=== PATIENT | female | born 1975 | race Caucasian/White ===

== ENCOUNTER 2018-05-19 14:06 | Emergency (ER) | payer OTHER ==
[2018-05-19] MEDS ORDERED: Aspirin 81 MG Tab.Chew PO ONE (14:13)
[2018-05-19] MEDS ORDERED: Sodium Chloride 0.9% 10 ML Syringe FLUSH PRN (14:15)
[2018-05-19] MEDS ORDERED: Sodium Chloride 0.9% 1,000 ML IV SCH (14:15)
[2018-05-19] MEDS ORDERED: Nitroglycerin 0.4 MG Tab.SL SL ONE (14:18)
--- NOTE | 2018-05-19 14:23 | EDM.PDOC ---
ED HPI GENERAL MEDICAL PROBLEM - General Chief Complaint: Chest Pain Stated Complaint: CHEST PAIN Time Seen by Provider: 05/19/18 14:09 Source of Information: Reports: Patient History Limitations: Reports: No Limitations - History of Present Illness INITIAL COMMENTS - FREE TEXT/NARRATIVE: Chest pain started this am; she states it is a dull, almost muscle pull feeling substernal to the right side. She has a hx of CAD s/p stent to the LAD, 90% occlusion in September; is on Brillinta. She rates her discomfort as a 2/10 after 2 SL Ntg. She is anxious; parents are here with her. 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 is Onset: Today Location: Reports: Chest Quality: Reports: Sharp Severity: Moderate Improves with: Reports: Other (nitroglycerin) Associated Symptoms: Reports: No Other Symptoms Right Middle Chest Pain Score (Numeric/FACES): 3 - Related Data Allergies Allergy/AdvReac Type Severity Reaction Status Date / Time No Known Allergies Allergy Verified 05/19/18 14:34 Home Meds: Home Meds Aspirin 81 mg PO DAILY 05/19/18 [History] Isosorbide Mononitrate [Imdur] 30 mg PO DAILY #30 tab.er 05/19/18 [Rx] Nitroglycerin 0.4 mg SL ASDIRECTED PRN 05/19/18 [History] Nitroglycerin 0.4 mg SL ASDIRECTED PRN #1 bottle 05/19/18 [Rx] Ticagrelor [Brilinta] 90 mg PO BID 05/19/18 [History] atorvaSTATin [Lipitor] 40 mg PO BEDTIME 05/19/18 [History] lamoTRIgine [Lamictal] 50 mg PO DAILY 05/19/18 [History] ED ROS GENERAL - Review of Systems Review Of Systems: See Below Constitutional: Reports: No Symptoms Respiratory: Reports: No Symptoms Cardiovascular: Reports: Chest Pain GI/Abdominal: Reports: No Symptoms : Reports: No Symptoms Musculoskeletal: Reports: Other (chest wall shooting pains (last 30 seconds)) Skin: Reports: No Symptoms Neurological: Reports: No Symptoms Psychiatric: Reports: No Symptoms ED EXAM, GENERAL - Physical Exam Exam: See Below Exam Limited By: No Limitations General Appearance: Alert, WD/WN, No Apparent Distress Ears: Normal External Exam Throat/Mouth: Normal Inspection, Normal Oropharynx Head: Atraumatic, Normocephalic Neck: Normal Inspection, Supple, Non-Tender, Full Range of Motion, Other (no carotid bruit) Respiratory/Chest: No Respiratory Distress, Lungs Clear, Normal Breath Sounds Cardiovascular: Regular Rate, Rhythm GI/Abdominal: Normal Bowel Sounds, Soft, Non-Tender Extremities: Normal Inspection, Normal Range of Motion, Non-Tender, No Pedal Edema, Normal Capillary Refill Neurological: Alert, Oriented, CN II-XII Intact Psychiatric: Normal Affect, Normal Mood Skin Exam: Warm, Dry, Intact, Normal Color, No Rash EKG INTERPRETATION EKG Date: 05/19/18 Time: 14:06 Rhythm: NSR Rate (Beats/Min): 80 [place]: Normal P-Wave: Present QRS: Normal ST-T: Normal QT: Normal Comparison: NA - No Prior EKG Course - Vital Signs Last Recorded V/S: Last Vital Signs Temp 98.2 F 05/19/18 14:09 Pulse 68 05/19/18 20:13 Resp 15 05/19/18 20:13 BP 100/51 L 05/19/18 20:13 Pulse Ox 98 05/19/18 20:13 - Orders/Labs/Meds Orders: Active Orders 24 hr Category Date Time Status Cardiac Monitoring [RC] .As Directed Care 05/19/18 14:10 Active EKG Documentation Completion [RC] ASDIRECTED Care 05/19/18 14:21 Active Peripheral IV Care [RC] . DIRECTED Care 05/19/18 14:20 Active Pulse Oximetry [RC] ASDIRECTED Care 05/19/18 14:15 Active Chest 1V Frontal [CR] Stat Exams 05/19/18 14:21 Taken Sodium Chloride 0.9% [Normal Saline] 1,000 ml Med 05/19/18 14:15 Active IV ASDIRECTED Sodium Chloride 0.9% [Saline Flush] Med 05/19/18 14:15 Active 10 ml FLUSH ASDIRECTED PRN Peripheral IV Insertion Adult [OM.PC] Stat Oth 05/19/18 14:15 Ordered EKG 12 Lead [EK] Stat Ther 05/19/18 14:21 Ordered Medication Orders Sodium Chloride (Normal Saline) 1,000 mls @ 75 mls/hr IV ASDIRECTED SUDARSHAN Last Admin: 05/19/18 14:29 Dose: 75 mls/hr Sodium Chloride (Saline Flush) 10 ml FLUSH ASDIRECTED PRN PRN Reason: Keep Vein Open Last Admin: 05/19/18 14:29 Dose: 10 ml Labs: Laboratory Tests 05/19/18 05/19/18 05/19/18 Range/Units 14:30 14:30 14:30 WBC 7.1 (4.5-11.0) K/uL RBC 4.48 (3.30-5.50) M/uL Hgb 14.5 (12.0-15.0) g/dL Hct 41.3 (36.0-48.0) % MCV 92 (80-98) fL MCH 32 H (27-31) pg MCHC 35 (32-36) % Plt Count 221 (150-400) K/uL Neut % (Auto) 52 (36-66) % Lymph % (Auto) 34 (24-44) % Nance % (Auto) 9 H (2-6) % Eos % (Auto) 4 (2-4) % Baso % (Auto) 0 (0-1) % APTT 24.7 L (27.0-36.0) sec Sodium 142 (140-148) mmol/L Potassium 4.2 (3.6-5.2) mmol/L Chloride 105 (100-108) mmol/L Carbon Dioxide 28 (21-32) mmol/L Anion Gap 9.4 (5.0-14.0) mmol/L BUN 12 (7-18) mg/dL Creatinine 0.8 (0.6-1.0) mg/dL Est Cr Clr Drug Dosing 93.78 mL/min Estimated GFR (MDRD) > 60 (>60) Glucose 91 (74-106) mg/dL Calcium 9.2 (8.5-10.1) mg/dL Total Bilirubin 0.2 (0.2-1.0) mg/dL AST 19 (15-37) U/L ALT 27 (12-78) U/L Alkaline Phosphatase 102 (46-116) U/L Creatine Kinase 71 (26-192) U/L CK-MB (CK-2) 0.3 (0-3.6) mg/mL Troponin I < 0.017 (0.000-0.056) ng/mL Total Protein 6.9 (6.4-8.2) g/dL Albumin 3.5 (3.4-5.0) g/dL Globulin 3.4 (2.3-3.5) g/dL Albumin/Globulin Ratio 1.0 L (1.2-2.2) 05/19/18 Range/Units 20:40 WBC (4.5-11.0) K/uL RBC (3.30-5.50) M/uL Hgb (12.0-15.0) g/dL Hct (36.0-48.0) % MCV (80-98) fL MCH (27-31) pg MCHC (32-36) % Plt Count (150-400) K/uL Neut % (Auto) (36-66) % Lymph % (Auto) (24-44) % Nance % (Auto) (2-6) % Eos % (Auto) (2-4) % Baso % (Auto) (0-1) % APTT (27.0-36.0) sec Sodium (140-148) mmol/L Potassium (3.6-5.2) mmol/L Chloride (100-108) mmol/L Carbon Dioxide (21-32) mmol/L Anion Gap (5.0-14.0) mmol/L BUN (7-18) mg/dL Creatinine (0.6-1.0) mg/dL Est Cr Clr Drug Dosing mL/min Estimated GFR (MDRD) (>60) Glucose (74-106) mg/dL Calcium (8.5-10.1) mg/dL Total Bilirubin (0.2-1.0) mg/dL AST (15-37) U/L ALT (12-78) U/L Alkaline Phosphatase (46-116) U/L Creatine Kinase (26-192) U/L CK-MB (CK-2) (0-3.6) mg/mL Troponin I < 0.017 (0.000-0.056) ng/mL Total Protein (6.4-8.2) g/dL Albumin (3.4-5.0) g/dL Globulin (2.3-3.5) g/dL Albumin/Globulin Ratio (1.2-2.2) Meds: Medications Generic Name Dose Route Start Last Admin Trade Name Freq PRN Reason Stop Dose Admin Sodium Chloride 1,000 mls @ 75 mls/hr 05/19/18 14:15 05/19/18 14:29 Normal Saline IV 75 mls/hr ASDIRECTED SUDARSHAN Administration Sodium Chloride 10 ml 05/19/18 14:15 05/19/18 14:29 Saline Flush FLUSH 10 ml ASDIRECTED PRN Administration Keep Vein Open Discontinued Medications Generic Name Dose Route Start Last Admin Trade Name Lj PRN Reason Stop Dose Admin Aspirin 243 mg 05/19/18 14:13 05/19/18 14:16 Aspirin PO 05/19/18 14:14 243 mg ONETIME ONE Administration Hydromorphone HCl 1 mg 05/19/18 17:15 Dilaudid IVPUSH Q1H PRN Pain Nitroglycerin 0.4 mg 05/19/18 14:18 05/19/18 14:26 Nitrostat SL 05/19/18 14:19 0.4 mg ONETIME ONE Administration - Re-Assessments/Exams Free Text/Narrative Re-Assessment/Exam: 05/19/18 15:05 after nitroglycerin, pain is at a 0 Free Text/Narrative Re-Assessment/Exam: 05/19/18 16:38 resting comfortably c/o "twinges of chest pain", last at most, 30 seconds Next trop at 8:30 pm Free Text/Narrative Re-Assessment/Exam: 05/19/18 21:10 rested without any complaints 2nd troponin is negative Will plan for discharge Departure - Departure Time of Disposition: 21:14 Disposition: Home, Self-Care 01 Condition: Good Clinical Impression: Atypical chest pain Chest pain Qualifiers: Chest pain type: other chest pain Qualified Code(s): R07.89 - Other chest pain Prescriptions: Isosorbide Mononitrate [Imdur] 30 mg PO DAILY #30 tab.er Nitroglycerin 0.4 mg SL ASDIRECTED PRN #1 bottle PRN Reason: Chest Pain Instructions: Chest Wall Pain, [id number], Nonspecific Chest Pain Referrals: PCP,None [Primary Care Provider] - Forms: ED Department Discharge Additional Instructions: Rest, push fluids Avoid caffeine If you have chest pain, take the nitro as directed Start Imdur 30 mg in the morning Call your automatic i threading machine feeder for follow up appointment in the near future If you have chest pain again, call 911. Pleasure to meet you! Take care. The automatic i threading machine feeder I spoke to at the [facility] was Dr. White. ED Communication - Discussed Case With (1) Discussed Case With (1): Other (Spoke with automatic i threading machine feeder from [facility], Dr. White; he feels because her troponin and ekg are normal, she would be ok to do a repeat Trop in 6 hours; if neg; home and FU with cardiology. If she develops pain, enzymes are positive, to be tx to [facility].) - Problem List & Annotations (1) Chest pain SNOMED Code(s): 29990278 Code(s): R07.9 - CHEST PAIN, UNSPECIFIED Status: Acute Priority: Medium Current Visit: Yes Qualifiers: Chest pain type: other chest pain Qualified Code(s): R07.89 - Other chest pain; R07.8 - Other chest pain - Problem List Review Problem List Initiated/Reviewed/Updated: Yes - My Orders Last 24 Hours: My Active Orders 05/19/18 14:10 Cardiac Monitoring [RC] .As Directed 05/19/18 14:15 Pulse Oximetry [RC] ASDIRECTED Sodium Chloride 0.9% [Normal Saline] 1,000 ml IV ASDIRECTED Sodium Chloride 0.9% [Saline Flush] 10 ml FLUSH ASDIRECTED PRN Peripheral IV Insertion Adult [OM.PC] Stat 05/19/18 14:20 Peripheral IV Care [RC] . DIRECTED 05/19/18 14:21 EKG Documentation Completion [RC] ASDIRECTED Chest 1V Frontal [CR] Stat EKG 12 Lead [EK] Stat - Assessment/Plan Last 24 Hours: My Active Orders 05/19/18 14:10 Cardiac Monitoring [RC] .As Directed 05/19/18 14:15 Pulse Oximetry [RC] ASDIRECTED Sodium Chloride 0.9% [Normal Saline] 1,000 ml IV ASDIRECTED Sodium Chloride 0.9% [Saline Flush] 10 ml FLUSH ASDIRECTED PRN Peripheral IV Insertion Adult [OM.PC] Stat 05/19/18 14:20 Peripheral IV Care [RC] . DIRECTED 05/19/18 14:21 EKG Documentation Completion [RC] ASDIRECTED Chest 1V Frontal [CR] Stat EKG 12 Lead [EK] Stat
[2018-05-19] MEDS ORDERED: HYDROmorphone 1 MG/ML Syringe IVPUSH PRN (17:15)
--- NOTE | 2018-05-23 10:12 | CR ---
Chest 1V Frontal INDICATION: Chest Pain COMPARISON: None FINDINGS: AP portable chest. Heart size normal. Lungs are clear. No pleural effusion.
== END 2018-05-19 21:21 | disposition home or self-care (01) ==
LOC: JP.ED 14:06
DX: R07.89 Other chest pain (principal); I25.10 Atherosclerotic heart disease of native coronary artery without angina pectoris; Z79.82 Long term (current) use of aspirin; Z79.899 Other long term (current) drug therapy; Z95.5 Presence of coronary angioplasty implant and graft
CPT/HCPCS: 36415; 71045; 80053; 82550; 82553; 84484; 85025; 85730; 93005; 96360; 96361; 99285; A9270; J7030; J7050